=== PATIENT | female | born 1935 | race Caucasian/White ===

== ENCOUNTER 2022-02-09 00:07 | Emergency (ER) | payer OTHER ==
[2022-02-09] MEDS ORDERED: FERR325T27 PO (05:27)
[2022-02-09] MEDS ORDERED: FURO20 PO (05:27)
[2022-02-09] MEDS ORDERED: LEVO25TA9 PO (05:27)
[2022-02-09] MEDS ORDERED: ACET-2247 PO (05:27)
[2022-02-09] MEDS ORDERED: AMLO-257 PO (05:27)
[2022-02-09] MEDS ORDERED: LISI-893 PO (05:27)
[2022-02-09] MEDS ORDERED: CALC0.2521 PO (05:27)
[2022-02-09 05:57] LABS: APPEARANCE,URINE CLEAR (CLEAR); BILIRUBIN,URINE NEGATIVE (NEGATIVE); GLUCOSE, URINE (UA) NEGATIVE (NEGATIVE); KETONES,URINE TRACE mg/dL (NEGATIVE); LEUKOCYTE ESTERASE ,URINE NEGATIVE (NEGATIVE); NITRATE,URINE NEGATIVE (NEGATIVE); OCCULT BLOOD,URINE NEGATIVE (NEGATIVE); PH,URINE 5.5 (5.0-8.0); PROTEIN,URINE NEGATIVE (NEGATIVE); UROBILINOGEN,URINE <=1.0 mg/dL (<=1.0)
[2022-02-09 06:03] LABS: AMPHET/METH SCREEN,URINE NEGATIVE (NEGATIVE); BENZODIAZEPINES SCREEN,URINE NEGATIVE (NEGATIVE); CANNABINOID SCREEN,URINE NEGATIVE (NEGATIVE); COCAINE SCREEN,URINE NEGATIVE (NEGATIVE); METHADONE SCREEN, URINE NEGATIVE (NEGATIVE); OPIATE SCREEN,URINE NEGATIVE (NEGATIVE)
[2022-02-09 06:04] LABS: BARBITURATE SCREEN, URINE NEGATIVE (NEGATIVE); PHENCYCLIDINE SCREEN,URINE NEGATIVE (NEGATIVE)
== END 2022-02-09 08:21 | disposition short-term general hospital (02) ==
LOC: EMS 00:11
DX: F03.90 Unspecified dementia, unspecified severity, without behavioral disturbance, psychotic disturbance, mood disturbance, and anxiety (principal); R45.1 Restlessness and agitation; Z87.81 Personal history of (healed) traumatic fracture
CPT/HCPCS: 81003; 99285